=== PATIENT | female | born 1995 | race Caucasian/White ===

== ENCOUNTER 2018-03-04 12:52 | Observation (INO) ==
[2018-03-04] MEDS ORDERED: *HR* Metoprolol 5 MG/5 ML VIAL IVP PRN ×2 (15:49→18:21)
[2018-03-04] MEDS ORDERED: Albuterol 2.5 MG/3 ML NEBULIZER IH ONE (15:49)
[2018-03-04] MEDS ORDERED: *HR* OxyCODONE Immed Rel 5 MG TABLET PO PRN ×2 (15:49→18:21)
[2018-03-04] MEDS ORDERED: *HR* Promethazine 25 MG/ML VIAL IVP PRN ×2 (15:49→18:21)
[2018-03-04] MEDS ORDERED: *HR* HYDROmorphone (PF) 1 MG/ML SYRINGE IVP PRN ×2 (15:49→18:21)
[2018-03-04] MEDS ORDERED: Ondansetron 4 MG/2 ML VIAL IVP ONE ×2 (15:49→18:21)
--- NOTE | 2018-03-04 15:49 | Anesthesia Evaluation PreOp ---
Date of Encounter: 03/04/18 Time of Encounter: 15:47 - Past History Planned Operation: Cystoscopy Right ureteral Stent Cardiac History: Denies any Significant Hx Pulmonary History: Denies Any Significant HX FIRE SUPPORT SPECIALIST History: Denies Any Significant HX Anesthesia History: No Prior Anesthetic Complications ( Rt Wrist Extensor Release), Past Anesthesia : No Test: Negative (03/04/18) Alcohol Use: none Drug use: none Medications and Allergies No Known Home Drugs 08/04/16 [History] Allergy/AdvReac Type Severity Reaction Status Date / Time No Known Allergies Allergy Verified 08/04/16 09:33 - Meds/Allergy Pre-op Review Medications Reviewed: Yes Allergies Reviewed: Yes Beta Blockers on Current Med List: No Anesthesia Exam O2 Sat Height 1.57 m Weight 56.812 kg O2 Sat by Pulse Oximetry 99 Vital Signs Temp Pulse Resp BP Pulse Ox 97.5 F L 79 14 118/74 99 03/04/18 15:37 03/04/18 15:37 03/04/18 15:37 03/04/18 15:37 03/04/18 15:37 NPO (# of Hours): > 8 hrs Pain Scale: 0 Pain Scale Used: Numeric (1 - 10) - HEENT Pupil (Motor): Pupils equal, EOMI Mallampati: II Teeth: Normal Oral Opening: Greater than 3 - FIRE SUPPORT SPECIALIST LOC: Oriented FIRE SUPPORT SPECIALIST Motor: Normal RUE, Normal LUE, Normal RLE, Normal LLE, Normal Face FIRE SUPPORT SPECIALIST Sensory: Normal: RUE, LUE, RLE, LLE, Face - Cardiac Rhythm: Regular Murmur: None JVD: No Carotid Bruit: No - Pulmonary Breath Sounds: bilateral Clear Respiratory Effort: Symmetrical Anesthesia Assess/Plan ASA Score: 1 Level of consciousness: Cooperative Anesthetic Plan: General Autologous Blood: Yes Monitoring Plan: Standard Monitors Recovery Plan: Other
[2018-03-04] MEDS ORDERED: *HR* FentaNYL (PF) 100 MCG/2 ML VIAL ONE (15:59)
[2018-03-04] MEDS ORDERED: *HR* Midazolam HCl 2 MG/2 ML VIAL ONE (15:59)
[2018-03-04] MEDS ORDERED: Lidocaine -MPF 2% 2 ML VIAL ONE (15:59)
[2018-03-04] MEDS ORDERED: *HR* Propofol 200 MG/20 ML VIAL IVP ONE (15:59)
[2018-03-04] MEDS ORDERED: Ondansetron 4 MG/2 ML VIAL ONE (16:05)
[2018-03-04] MEDS ORDERED: Dexamethasone 4 MG/ML VIAL ONE (16:05)
--- NOTE | 2018-03-04 16:12 | Urology - Consult Note ---
Date of Encounter: 03/04/18 Time of Encounter: 16:10 - Assessment and Plan (1) Right ureteral calculus Current Visit: Yes Status: Acute Assessment and plan: 5 mm distal right ureteral calculus. Patient with significant significant symptoms mandating hospitalization admission. Discussed options for management including child expulsive therapy versus urologic intervention. Discussed risks benefits alternatives ureteroscopy with stone extraction and stenting. Plan: Add onto or schedule today for a ureteroscopic stone extraction. (2) Right flank pain Current Visit: Yes Status: Acute Assessment and plan: Secondary to right ureteral catheter was. Anticipate spontaneous resolution post address of stone. Plan: Address ureteral calculus as above (3) Hydronephrosis, right Current Visit: Yes Status: Acute Assessment and plan: Secondary to right ureteral calculus. Urine without signs of infection. Patient afebrile. White count is 12. Plan: Ureteroscopic stone extraction with ureteral stent placement. Urology CN:HPI Consult date: 03/04/18 History of present illness: Very pleasant 23-year-old lady with no significant past urologic or past medical history. She presented to [facility] earlier today with right-sided flank pain. Evaluation and fluid CT shows a 5 mm right distal ureteral catheter was. The patient has no signs of UTI. She is afebrile. The patient's white count is 12. She exhibits no signs of sepsis. Due to lack of urology coverage and the patient's symptomatology she is transferred to [facility] for treatment. Past Med Surg Social Fam HX - Past Medical History Medical history: no medical history Psychiatric history: no psych history - Past Surgical History Additional surgical history: tubes in ears, endon repair - Social History Smoking Status: Never smoker Smokeless Tobacco Status: No Alcohol use: none Drug use: none Medications and Allergies No Known Home Drugs 08/04/16 [History] Allergy/AdvReac Type Severity Reaction Status Date / Time No Known Allergies Allergy Verified 08/04/16 09:33 Review of Systems - Constitutional no chills, no fever(s) - EENT Nose, mouth and throat: no dry mouth, no headache(s) - Cardiovascular no chest pain, no diaphoresis - Respiratory no cough, no dyspnea - Gastrointestinal abdominal pain, no vomiting - Genitourinary Genitourinary: flank pain, no dysuria - Musculoskeletal no muscle weakness, no numbness - Integumentary no lesions, no rash - Neurological no confusion, no sensory deficit - Psychiatric no anxiety, no confusion - Hematologic/Lymphatic no easy bleeding, no easy bruising - Allergic/Immunologic no throat swelling, no wheezing Exam Initial Vital Signs Temp Pulse Resp BP Pulse Ox 97.5 F L 79 14 118/74 99 03/04/18 15:37 03/04/18 15:37 03/04/18 15:37 03/04/18 15:37 03/04/18 15:37 - General physical appearance Present: well developed, well nourished - Eyes Present: normal ocular movement - ENT Present: normal nares, normal mucosa - Neck Present: trachea midline - Respiratory Present: normal respiratory effort - Abdomen Abdomen: Absent: guarding, distended - Integumentary Present: no rash, no growths - Neurologic Present: normal coordination - Musculoskeletal Present: normal gait Urology Results - Labs All other labs normal.
[2018-03-04] MEDS ORDERED: Isovue-300 50 ML VIAL ONE (16:27)
[2018-03-04] MEDS ORDERED: Naloxone 0.4 MG/ML INJ IVP PRN ×2 (16:54→18:21)
[2018-03-04] MEDS ORDERED: Ketorolac 30 MG/ML VIAL ONE (17:27)
--- NOTE | 2018-03-04 17:34 | Operative Note ---
Date of procedure: 03/04/18 Pre-op diagnosis: Right ureteral calculus, right hydronephrosis, right flank pain Post-op diagnosis: same Procedure: Cystoscopy, right retrograde ureteral pyelography with intraoperative interpretation of radiographic images by surgeon in real time to facilitate procedure, right ureteral dilation, right ureteroscopy, basket extraction of right ureteral calculus, right double-J stent placement Implants: 6 x 24 right double-J stent Complications: none Anesthesia: GETA Surgeon: Maximino Lobato Was there an workers compensation claims assistant present: No Estimated blood loss (cc): 0 Specimen: none Condition: stable Disposition: PACU Procedure in Detail: The patient brought to the operating theater placed on table supine position. Is identified by name date of and administered a general anesthetic. The patient placed dorsal lithotomy prepped and draped in the normal sterile fashion. A cystoscope inserted into the urethral meatus and advanced with the bladder under direct visualization. There were no abnormalities of the urethra or bladder mucosa. An open-ended catheter was placed the tip of the right ureteral orifice. With gentle injection of contrast a right retrograde ureteropyelogram was performed. Intraoperative interpretation of pyelographic images in real time by surgeon revealed: Filling defect in the very distal ureter. Above this filling defect was moderate hydroureteronephrosis. No additional filling defects, strictures or abnormalities were appreciated. Based upon these findings ureteroscopy stone extraction was indicated. Under fluoroscopic guidance a Glidewire was advanced the right renal pelvis above the stone. An 8/10 Upper Sorbian introducer was used to dilate the right UO. Then alongside the Glidewire a semirigid ureteroscope was advanced. The stone was quite impacted in edema at the very distal ureter. The scope had to be used to manipulate the stone out of the inflammatory mucosa. Once the stone was free a basket used to grasp the stone and remove it intact. At this point reinserted ureteroscope again to confirm no additional fragments in the distal ureter. No additional stones were seen. All instruments were removed from the patient's bladder and ureter. Over the existing Glidewire a 6 x 24 double-J stent was advanced. Was sent was felt be in good position the Glidewire was removed. Possible distal ends of the stent were confirmed in satisfactory position with fluoroscopy. This ended the urologic procedure
--- NOTE | 2018-03-04 17:37 | Urology Progress Note ---
Date of Encounter: 03/04/18 Time of Encounter: 17:35 - Assessment and Plan (1) Right ureteral calculus Current Visit: Yes Status: Acute Assessment and plan: Uncomplicated ureteroscopic stone extraction with stent placement. Plan: Okay for discharge tonight from urologic perspective if okay with primary service. Please discharged to home with 48 hours worth of pain med and oral antibiotic. My office will call her to arrange follow-up and stent removal. Thank you kindly for your assistance in the care of this patient. (2) Right flank pain Current Visit: Yes Status: Acute (3) Hydronephrosis, right Current Visit: Yes Status: Acute Objective Initial Vital Signs Temp Pulse Resp BP Pulse Ox 97.5 F L 79 14 118/74 99 03/04/18 15:37 03/04/18 15:37 03/04/18 15:37 03/04/18 15:37 03/04/18 15:37
--- NOTE | 2018-03-04 18:38 | Anesthesia Evaluation Post Op ---
Date of Encounter: 03/04/18 Time of Encounter: 18:20 - Vital Signs Vital Signs: Vital Signs Temp Pulse Resp BP Pulse Ox 03/04/18 18:26 97.6 F 89 16 114/73 99 03/04/18 18:08 98.3 F 90 18 110/77 100 03/04/18 17:58 90 16 117/70 100 03/04/18 17:48 78 12 107/64 98 03/04/18 17:38 97.5 F L 73 12 101/58 96 03/04/18 15:37 97.5 F L 79 14 118/74 99 Intake and Output 03/04/18 03/04/18 03/04/18 07:59 15:59 23:59 Output Total 0 / 0 0 / 0 Balance 0 / 0 0 / 0 Output: Urine 0 / 0 Estimated Blood Loss 0 / 0 Other: # Bowel Movements 0 Weight 56.812 kg Patient Weight 03/04/18 23:59 Weight 56.812 kg - Lungs Lungs: Clear Ascult./Percussion - Airway Airway: Non-obstructed - Cardiovascular Regular Rate - Mental Status Mental Status: Alert & Oriented, Answers Appropriately - Pain Pain Scale: 0 Pain Scale used: Martinez-Clayton (Faces) - Nausea Vomiting Nausea Vomiting: Not Present - Hydration Hydration: Tolerates oral liquids, Able to void - Discharge PostOp Status: Transfer Patient to floor Anes Supervising Prov Stmt: Pt seen/evaluated, VSS and has met criteria for discharge to home. - MD Juvenal
[2018-03-04] MEDS ORDERED: 0.9 % Sodium Chloride 2,000 ML IVC SCH (18:45)
[2018-03-04 20:55] LABS: Basophils % 0.2 %; Hematocrit 33.9 % (35.3-44.9); Hemoglobin 11.4 g/dL (11.5-15.4); Immature Granulocytes % 0.3 % (0-4); Lymphocytes # 0.5 K/mcL (0.6-4.6); Lymphocytes % 3.8 %; Mean Corpuscular HGB Conc 33.6 g/dL (31.6-35.5); Mean Corpuscular Hemoglobin 28.7 pg (28.0-33.3); Mean Corpuscular Volume 85.4 fL (83.0-100.0); Mean Platelet Volume 9.6 fL (9.4-12.4); Monocytes # 0.2 K/mcL (0.0-1.3); Monocytes % 1.3 %; Neutrophils # 12.6 K/mcL (1.6-8.9); Platelet Count 335 K/mcL (140-400); Red Blood Count 3.97 M/mcL (3.82-4.97); Red Cell Distribution Width 12.5 % (11.5-14.5); Segmented Neutrophils % 94.4 %
[2018-03-04 20:57] LABS: BUN/Creatinine Ratio 10 (6-26); Blood Urea Nitrogen 10 mg/dL (6-20); Calcium 9.5 mg/dL (8.6-10.3); Carbon Dioxide 25 mEq/L (23-29); Chloride 103 mEq/L (98-107); Glucose 138 mg/dL (70-105); Osmolality,Calculated 281 (280-300); Potassium 3.8 mEq/L (3.5-5.1); Sodium 135 mEq/L (136-145); eGFR For Non-African Americans > 60 (> 60)
--- NOTE | 2018-03-04 21:45 | Internal Med History&Physical ---
Date of Encounter: 03/05/18 Time of Encounter: 11:00 Internal Medicine - H&P: HPI Chief complaint: Right flank pain Admitted From: Home History of present illness: Patient reported a 24-hour history of left flank pain which she describes as labor pain. Patient reported that the pain was constant without radiation. She reported of associated symptoms of nausea vomiting. Patient decided to go to [facility] ER for evaluation where she was found to have a 5 mm stone with left hydronephrosis on imaging and was subsequently transferred to [facility] for manag ement. Urologist was contacted and agreed to be consulted with plans to take patient today for stone extraction. Past Med Surg Social Fam HX - Past Medical History Medical history: no medical history Psychiatric history: no psych history - Past Surgical History Additional surgical history: tubes in ears, endon repair - Social History Smoking Status: Never smoker Smokeless Tobacco Status: No Alcohol use: none Drug use: none - Additional Family History Additional family history: Reviewed and noncontributory Internal Medicine - H&P: Meds No Known Home Drugs 08/04/16 [History] Allergy/AdvReac Type Severity Reaction Status Date / Time No Known Allergies Allergy Verified 03/04/18 22:21 All Systems PM: A 10-system review of systems was performed and is negative for pertinent findings except as documented above in the HPI. - Constitutional Vitals: Temp Pulse Resp BP Pulse Ox 98.1 F 101 15 108/71 98 03/04/18 20:17 03/04/18 20:17 03/04/18 20:17 03/04/18 20:17 03/04/18 20:17 General appearance: Present: A&O X 3, no acute distress Exam: As above - Head Head exam: Present: normocephalic - Eye Eye exam: Present: normal appearance - ENT ENT exam: Present: mucous membranes moist - Respiratory Respiratory exam: Present: CTAB. Absent: accessory muscle use, rales, rhonchi, wheezes - Cardiovascular Cardiovascular exam: Present: RRR, +S1, +S2. Absent: diastolic murmur, gallop, rubs, systolic murmur - GI/Abdominal GI/Abdominal exam: Present: normal bowel sounds, soft, no peritoneal signs. Absent: distended, tenderness - Extremities Exam Extremities exam: Absent: pedal edema - Neurological Exam Neurological exam: Present: oriented X3 - Psychiatric Psychiatric exam: Present: normal mood - Skin Skin exam: Present: normal color Internal Med - H&P Results - Labs CBC & Chem 7: 03/04/18 20:43 03/04/18 20:31 Labs: Short CBC 03/04/18 Range/Units 20:43 WBC 13.3 H (4.3-11.1) K/mcL Hgb 11.4 L (11.5-15.4) g/dL Hct 33.9 L (35.3-44.9) % Plt Count 335 (140-400) K/mcL Neutrophils # 12.6 H (1.6-8.9) K/mcL BMP 03/04/18 20:31 Sodium 135 L Potassium 3.8 Chloride 103 Carbon Dioxide 25 BUN 10 Creatinine 1.03 Glucose 138 H Calcium 9.5 - Impressions ITS Impressions Retrograde Pyelogram 03/04/18 00:00 IMPRESSION: Intraprocedural fluoroscopic spot images as above. See separate procedure report for more information. D/ / Ramon Menjivar MD / Ramon Menjivar MD Interpreting Provider: Ramon Menjivar MD - Assessment and plan (1) Right ureteral calculus Current Visit: Yes Status: Acute Assessment and plan: Patient with 5 mm stone which was extracted on 03/04/18 by urology Will observe overnight with plans to discharge on 03/05/18 Continue pain control in addition to IV fluids (2) Hydronephrosis, right Current Visit: Yes Status: Acute Assessment and plan: Secondary to the above (3) Right flank pain Current Visit: Yes Status: Acute Assessment and plan: Secondary to the above Allergy with recommendations to discharge patient with pain medications in addition to antibiotics - Time Spent With Patient Total time spent is greater than 50% in coordination of care (as documented) at patient's floor/unit and/or counseling patient:
[2018-03-04] MEDS ORDERED: Acetaminophen 325 MG TABLET PO PRN (23:22)
[2018-03-04] MEDS: traMADol 50 MG TABLET PO PRN (23:40)
[2018-03-05] MEDS: traMADol 50 MG TABLET PO PRN (05:57)
[2018-03-05 07:48] VITALS: BP 103/61
--- NOTE | 2018-03-05 09:40 | Discharge Summary ---
- NOTES TO OUTPATIENT PROVIDER Notes to Outpatient Provider: Follow up with urology Date of Encounter: 03/05/18 Time of Encounter: 09:40 - Discharge Diagnosis (1) Right ureteral calculus Priority: Primary Status: Resolved (2) Right flank pain Priority: Primary Status: Resolved (3) Hydronephrosis, right Priority: Primary Status: Acute Hospital course: Ms. Pena is a 23 year old female with no significant PMH who was placed on observation for R flank pain, due to R ureteral calculus She has since had a Cystoscopy, right retrograde ureteral pyelography with intraoperative interpretation of radiographic images by surgeon in real time to facilitate procedure, right ureteral dilation, right ureteroscopy, basket extraction of right ureteral calculus, right double-J stent placement She is seen and evaluated this morning and is not in any form of distress, she denies pain and urine is clear She is hemodynamically stable Discharged home with pain control as well as follow up with urology in clinically stable condition Discharge discussed with: patient, nurse - Time Spent with Patient Total time spent providing and/or coordinating discharge services: Less than 30 minutes - Discharge Medications Prescriptions: HYDROcodone/Acet 5/325 mg [Rimrock 5-325 mg] 1 tab PO Q6H PRN 6 Days #10 tab PRN Reason: Moderate Pain Home Medications: HYDROcodone/Acet 5/325 mg [Rimrock 5-325 mg] 1 tab PO Q6H PRN 6 Days #10 tab 03/05/18 [Rx] Allergies/Adverse Reactions: Allergy/AdvReac Type Severity Reaction Status Date / Time No Known Allergies Allergy Verified 03/04/18 22:21 Date of admission: 03/04/18 15:35 Discharging clinician: Foreign Llamas Anticipated date of discharge: 03/05/18 - Constitutional Vitals: Temp Pulse Resp BP Pulse Ox 97.7 F 83 16 103/61 97 03/05/18 07:43 03/05/18 07:43 03/05/18 07:43 03/05/18 07:43 03/05/18 07:57 General appearance: Present: A&O X 3, no acute distress Exam: see below - Head Head exam: Present: atraumatic, normocephalic - Eye Eye exam: Present: PERRL, conjuntiva pink, sclera anicteric Pupils: Present: PERRL - Neck Neck exam general surgery: Present: supple, trachea midline. Absent: lymphade nopathy - Respiratory Respiratory exam: Present: CTAB. Absent: accessory muscle use, rales, rhonchi, wheezes - Cardiovascular Cardiovascular exam: Present: RRR, +S1, +S2. Absent: diastolic murmur, gallop, rubs, systolic murmur - GI/Abdominal GI/Abdominal exam: Present: normal bowel sounds, soft, no peritoneal signs. Absent: distended, tenderness - Extremities Exam Extremities exam: Present: warm, radial pulses palpable and symmetrical. Absent: calf tenderness, cyanotic, pedal edema - Neurological Exam Neurological exam: Present: CN II-XII intact, oriented X3, no focal deficits. Absent: pronater drift, facial droop, speech deficit - Skin Skin exam: Present: dry, intact - Patient Status Disposition: Home, Self-Care Condition: Good Functional capacity at discharge: independent ambulation Overall status at discharge: patient is back to baseline - Discharge Instructions - Diet and Activity Activity: resume usual activities as tolerated Diet: regular diet
== END 2018-03-05 10:40 | disposition home or self-care (01) ==
LOC: 3ANU → SUATTDRO 15:35
PROVIDERS: ADMIT Hospitalist; ATTEND Internal Medicine